=== PATIENT | female | born 1985 | race Caucasian/White ===

== ENCOUNTER → 2018-01-28 15:35 | Outpatient (CLI) | payer OTHER, SELFPAY ==
[2018-01-28 16:49] LABS: HCG,Quantitative 601 mIU/mL
== END ==
PROVIDERS: Family Provider Internal Medicine Adolescent Medicine; PCP Nurse Practitioner Obstetrics & Gynecology; Visit Provider Nurse Practitioner Obstetrics & Gynecology
DX: O03.9 Complete or unspecified spontaneous abortion without complication (principal)
CPT/HCPCS: 36415; 84702

== ENCOUNTER → 2018-02-04 11:22 | Outpatient (CLI) | payer OTHER, SELFPAY ==
[2018-02-04 12:47] LABS: HCG,Quantitative 42 mIU/mL
== END ==
PROVIDERS: Visit Provider Nurse Practitioner Obstetrics & Gynecology
DX: O03.9 Complete or unspecified spontaneous abortion without complication (principal); Z01.419 Encounter for gynecological examination (general) (routine) without abnormal findings
CPT/HCPCS: 36415; 84702